=== PATIENT | female | born 1975 | race African-American/Black ===

== ENCOUNTER 2017-04-01 16:27 | Emergency (ER) | payer OTHER ==
[~2017-04-01] VITALS: Ht 160 cm; Wt 75.0 kg
[2017-04-01 16:29] VITALS: BP 136/80
== END 2017-04-01 19:44 | disposition left against medical advice (07) ==
LOC: EMS 16:29
DX: R60.0 Localized edema (principal); E11.9 Type 2 diabetes mellitus without complications; F17.210 Nicotine dependence, cigarettes, uncomplicated; Z53.21 Procedure and treatment not carried out due to patient leaving prior to being seen by health care provider

== ENCOUNTER 2017-05-09 10:34 | Emergency (ER) | payer OTHER ==
[~2017-05-09] VITALS: Ht 160 cm; Wt 72.7 kg
[2017-05-09 10:52] LABS: GLUCOSE,POINT OF CARE 84 MG/DL (70-110)
[2017-05-09 13:15] VITALS: BP 130/78
== END 2017-05-09 13:26 | disposition home or self-care (01) ==
LOC: EMS 10:35
DX: J06.9 Acute upper respiratory infection, unspecified (principal); E11.9 Type 2 diabetes mellitus without complications; F17.210 Nicotine dependence, cigarettes, uncomplicated; R03.0 Elevated blood-pressure reading, without diagnosis of hypertension
CPT/HCPCS: 82962; 99283

== ENCOUNTER 2018-11-16 21:04 | Emergency (ER) | payer OTHER ==
[~2018-11-16] VITALS: Ht 162.6 cm; Wt 77.3 kg
[2018-11-16 22:16] VITALS: BP 141/90
[2018-11-16] MEDS ORDERED: HYDROCODONE/ACETAMINOPHEN 5-325 MG TABLET PO ONE (22:30)
== END 2018-11-16 23:06 | disposition home or self-care (01) ==
LOC: EMS 21:06
DX: S62.521A Displaced fracture of distal phalanx of right thumb, initial encounter for closed fracture (principal); E11.9 Type 2 diabetes mellitus without complications; F17.210 Nicotine dependence, cigarettes, uncomplicated; W23.0XXA Caught, crushed, jammed, or pinched between moving objects, initial encounter; Y93.89 Activity, other specified; Y92.89 Other specified places as the place of occurrence of the external cause; Y99.8 Other external cause status

== ENCOUNTER 2020-09-06 22:29 | Emergency (ER) | payer OTHER ==
[~2020-09-06] VITALS: Ht 160 cm; Wt 79.5 kg
[~2020-09-06 22:29] MED LIST: ALBU8HFA IH
[2020-09-06] MEDS ORDERED: KETOROLAC TROMETHAMINE 60 MG/2 ML VIAL IM ONE (23:30)
[2020-09-07 00:57] VITALS: BP 132/78
== END 2020-09-07 00:57 | disposition home or self-care (01) ==
LOC: EMS 22:35
DX: S39.011A Strain of muscle, fascia and tendon of abdomen, initial encounter (principal); X58.XXXA Exposure to other specified factors, initial encounter; Y93.89 Activity, other specified; Y92.89 Other specified places as the place of occurrence of the external cause; Y99.8 Other external cause status
CPT/HCPCS: 81025; 96372; 99283; J1885

== ENCOUNTER 2023-12-07 21:03 | Emergency (ER) | payer OTHER ==
[~2023-12-07] VITALS: Ht 160 cm; Wt 77.3 kg
[~2023-12-07 21:03] MED LIST changes: +ALBU18HF12 IH; -ALBU8HFA IH
[2023-12-07 21:21] VITALS: BP 123/85; PULSE 117; RESP 17; TEMP 98.4
[2023-12-07 21:58] LABS: COVID AG,FIA SOURCE NASAL SWAB
[2023-12-07 22:55] LABS: INFLUENZA TYPE A NEGATIVE FOR TYPE A (NEGATIVE); INFLUENZA TYPE B NEGATIVE FOR TYPE B (NEGATIVE)
[2023-12-07 22:56] LABS: SARS-COV2 (COVID) ANTIGEN,FIA Negative (Negative)
[2023-12-07 23:00] LABS: RAPID GROUP A STREP NEGATIVE (NEGATIVE)
== END 2023-12-07 23:02 | disposition left against medical advice (07) ==
LOC: EMS 21:04
DX: R68.89 Other general symptoms and signs (principal); Z20.822 Contact with and (suspected) exposure to COVID-19
CPT/HCPCS: 87430; 87804; 99281; Z7502

== ENCOUNTER 2023-12-25 00:20 | Emergency (ER) | payer OTHER ==
[~2023-12-25] VITALS: Ht 160 cm; Wt 79.5 kg
[2023-12-25 01:07] VITALS: TEMP 98
[2023-12-25 03:00] VITALS: BP 164/76; PULSE 89; RESP 16
== END 2023-12-25 03:00 | disposition home or self-care (01) ==
LOC: EMS 00:20
DX: S29.011A Strain of muscle and tendon of front wall of thorax, initial encounter (principal); I10 Essential (primary) hypertension; F17.210 Nicotine dependence, cigarettes, uncomplicated; Z98.890 Other specified postprocedural states; X58.XXXA Exposure to other specified factors, initial encounter; Y93.89 Activity, other specified; Y92.89 Other specified places as the place of occurrence of the external cause; Y99.8 Other external cause status
CPT/HCPCS: 71045; 93005; 99283

== ENCOUNTER 2023-12-27 01:32 | Emergency (ER) | payer OTHER ==
[~2023-12-27] VITALS: Ht 160 cm; Wt 75.0 kg
[2023-12-27 01:36] VITALS: TEMP 97.9
[2023-12-27 02:34] LABS: HEMATOCRIT 41.7 % (36-46); HEMOGLOBIN 13.6 g/dL (12.0-16.0); LYMPHOCYTES # (AUTO) 2.7 K/uL (1.0-4.8); LYMPHOCYTES % (AUTO) 26.6 % (22.0-44.0); MEAN CORPUSCULAR HEMOGLOBIN 26.2 pg (26.0-34.0); MEAN CORPUSCULAR HGB CONC 32.7 G/dL (31.0-37.0); MEAN CORPUSCULAR VOLUME 80 fL (80-100); MONOCYTES # (AUTO) 0.8 K/uL (0.1-1.0); MONOCYTES % (AUTO) 7.8 % (2.0-9.0); NEUTROPHILS # (AUTO) 5.8 K/uL (1.8-7.7); NEUTROPHILS % (AUTO) 57.6 % (40.0-70.0); PLATELET COUNT (AUTO) 426 K/uL (150-450); RED BLOOD CELL COUNT(AUTO) 5.21 MIL/uL (4.00-5.20); RED CELL DISTRIBUTION WIDTH 16.8 % (11.5-14.5); WHITE BLOOD COUNT (AUTO) 10.1 K/uL (4.5-11.0)
[2023-12-27 02:43] LABS: ANION GAP 10 mmol/L (8-16); CALCIUM, TOTAL 9.5 mg/dL (8.8-10.5); CARBON DIOXIDE 28 mmol/L (22-29); CHLORIDE 101 mmol/L (98-107); GLOMERULAR FILTR. RATE CALC > 60 mL/min (>60); GLUCOSE,RANDOM 120 mg/dL (70-110); POTASSIUM 3.7 mmol/L (3.5-5.1); SODIUM SERUM 139 mmol/L (136-145); UREA NITROGEN, BLOOD 11 mg/dL (7-18)
[2023-12-27 02:50] LABS: TROPONIN I-HIGH SENSITIVITY 5 ng/L (<51)
[2023-12-27 02:55] LABS: B-TYPE NATRIURETIC PEPTIDE 5 pg/mL (0-100)
[2023-12-27 03:07] LABS: ALANINE AMINOTRANSFERASE 24 U/L (12-78); ALBUMIN 3.5 g/dL (3.4-5.0); ALKALINE PHOSPHATASE 104 U/L (46-116); ASPARTATE AMINOTRANSFERASE 21 U/L (15-37); BILIRUBIN,TOTAL 0.1 mg/dL (0.1-1.0); CREATINE KINASE, TOTAL ONLY 152 U/L (26-192); TOTAL PROTEIN, SERUM 8.7 g/dL (6.4-8.2)
[2023-12-27 03:21] VITALS: BP 155/87; PULSE 86; RESP 16
[2023-12-27] MEDS ORDERED: AMLO2.5T96 PO (04:11)
[2023-12-27] MEDS: AmLODIPine BESYLATE 5 MG TABLET PO ONE (04:25)
== END 2023-12-27 04:36 | disposition home or self-care (01) ==
LOC: EMS 01:38
DX: I10 Essential (primary) hypertension (principal); F17.210 Nicotine dependence, cigarettes, uncomplicated; Z98.890 Other specified postprocedural states
CPT/HCPCS: 71045; 80053; 82550; 83880; 84484; 85025; 93005; 99285; 36415-L1; 36415-TC

== ENCOUNTER 2024-01-15 04:36 | Emergency (ER) | payer OTHER ==
[~2024-01-15] VITALS: Ht 160 cm; Wt 77.3 kg
[~2024-01-15 04:36] MED LIST changes: +AMLO2.5T96 PO
[2024-01-15 05:50] LABS: BASOPHILS % (AUTO) 0.7 % (0.0-2.0); EOSINOPHILS % (AUTO) 1.6 % (1.0-6.0); HEMOGLOBIN 12.3 g/dL (12.0-16.0); LYMPHOCYTES # (AUTO) 1.6 K/uL (1.0-4.8); LYMPHOCYTES % (AUTO) 18.6 % (22.0-44.0); MEAN CORPUSCULAR HEMOGLOBIN 26.1 pg (26.0-34.0); MEAN CORPUSCULAR HGB CONC 32.5 G/dL (31.0-37.0); MEAN CORPUSCULAR VOLUME 80 fL (80-100); MONOCYTES # (AUTO) 0.7 K/uL (0.1-1.0); MONOCYTES % (AUTO) 8.4 % (2.0-9.0); NEUTROPHILS # (AUTO) 6.1 K/uL (1.8-7.7); NEUTROPHILS % (AUTO) 70.7 % (40.0-70.0); PLATELET COUNT (AUTO) 369 K/uL (150-450); RED BLOOD CELL COUNT(AUTO) 4.73 MIL/uL (4.00-5.20); RED CELL DISTRIBUTION WIDTH 16.8 % (11.5-14.5); WHITE BLOOD COUNT (AUTO) 8.7 K/uL (4.5-11.0)
[2024-01-15 05:59] LABS: ANION GAP 8 mmol/L (8-16); CALCIUM, TOTAL 9.4 mg/dL (8.8-10.5); CARBON DIOXIDE 25 mmol/L (22-29); CHLORIDE 105 mmol/L (98-107); CREATININE 0.81 mg/dL (0.60-1.30); GLOMERULAR FILTR. RATE CALC > 60 mL/min (>60); GLUCOSE,RANDOM 106 mg/dL (70-110); POTASSIUM 4.2 mmol/L (3.5-5.1); SODIUM SERUM 138 mmol/L (136-145); UREA NITROGEN, BLOOD 11 mg/dL (7-18)
[2024-01-15 06:08] LABS: TROPONIN I-HIGH SENSITIVITY 4 ng/L (<51)
[2024-01-15] MEDS: IBUPROFEN 600 MG TABLET PO ONE (08:02)
[2024-01-15 08:58] LABS: TROPONIN I-HIGH SENSITIVITY 6 ng/L (<51)
[2024-01-15 11:47] VITALS: BP 157/91; PULSE 94; RESP 16; TEMP 98.1
== END 2024-01-15 12:05 | disposition home or self-care (01) ==
LOC: EMS 04:37
DX: R07.9 Chest pain, unspecified (principal); I10 Essential (primary) hypertension; F17.210 Nicotine dependence, cigarettes, uncomplicated; Z98.890 Other specified postprocedural states
CPT/HCPCS: 71046; 80048; 84484; 85025; 93005; 99285; 36415-L1; 36415-TC

== ENCOUNTER 2024-02-10 19:17 | Emergency (ER) | payer OTHER ==
[~2024-02-10] VITALS: Ht 160 cm; Wt 75.0 kg
[2024-02-10 19:20] VITALS: TEMP 98.5
[2024-02-10] MEDS ORDERED: BACTDSB PO (20:37)
[2024-02-10] MEDS ORDERED: CEPH-558 PO (20:37)
[2024-02-10 20:45] VITALS: BP 139/77; PULSE 114; RESP 16
== END 2024-02-10 21:07 | disposition home or self-care (01) ==
LOC: EMS 19:18
DX: L03.311 Cellulitis of abdominal wall (principal); I10 Essential (primary) hypertension; F17.210 Nicotine dependence, cigarettes, uncomplicated
CPT/HCPCS: 99283; Z7502

== ENCOUNTER 2024-12-18 19:09 | Inpatient (IN) | payer OTHER ==
[~2024-12-18] VITALS: Ht 160 cm; Wt 93.2 kg
[~2024-12-18 19:09] MED LIST changes: +BACTDSB PO; +CEPH-558 PO
[2024-12-18 23:14] LABS: BASOPHILS % (AUTO) 0.8 % (0.0-2.0); EOSINOPHILS % (AUTO) 1.4 % (1.0-6.0); HEMATOCRIT 39.6 % (36-46); HEMOGLOBIN 12.9 g/dL (12.0-16.0); LYMPHOCYTES # (AUTO) 2.3 K/uL (1.0-4.8); LYMPHOCYTES % (AUTO) 18.9 % (22.0-44.0); MEAN CORPUSCULAR HEMOGLOBIN 25.7 pg (26.0-34.0); MEAN CORPUSCULAR HGB CONC 32.5 G/dL (31.0-37.0); MEAN CORPUSCULAR VOLUME 79 fL (80-100); MONOCYTES # (AUTO) 0.8 K/uL (0.1-1.0); MONOCYTES % (AUTO) 6.9 % (2.0-9.0); NEUTROPHILS # (AUTO) 8.5 K/uL (1.8-7.7); PLATELET COUNT (AUTO) 334 K/uL (150-450); RED BLOOD CELL COUNT(AUTO) 5.02 MIL/uL (4.00-5.20); RED CELL DISTRIBUTION WIDTH 16.6 % (11.5-14.5); WHITE BLOOD COUNT (AUTO) 11.9 K/uL (4.5-11.0)
[2024-12-18 23:22] LABS: ANION GAP 7 mmol/L (8-16); CALCIUM, TOTAL 9.4 mg/dL (8.8-10.5); CARBON DIOXIDE 27 mmol/L (22-29); CHLORIDE 104 mmol/L (98-107); CREATININE 0.83 mg/dL (0.60-1.30); GLOMERULAR FILTR. RATE CALC > 60 mL/min (>60); GLUCOSE,RANDOM 157 mg/dL (70-110); SODIUM SERUM 138 mmol/L (136-145); UREA NITROGEN, BLOOD 13 mg/dL (7-18)
[2024-12-18 23:24] LABS: ALANINE AMINOTRANSFERASE 41 U/L (12-78); ALBUMIN 3.2 g/dL (3.4-5.0); ALKALINE PHOSPHATASE 94 U/L (46-116); ASPARTATE AMINOTRANSFERASE 43 U/L (15-37); BILIRUBIN,TOTAL 0.2 mg/dL (0.1-1.0); TOTAL PROTEIN, SERUM 7.8 g/dL (6.4-8.2)
[2024-12-18 23:26] LABS: B-TYPE NATRIURETIC PEPTIDE < 5 pg/mL (0-100); BILIRUBIN,DIRECT < 0.05 mg/dL (0.00-0.20); TROPONIN I-HIGH SENSITIVITY 4 ng/L (<51)
[2024-12-18] MEDS ORDERED: IOHEXOL 350 MG/ML 150 ML VIAL ONE (23:49)
[2024-12-18] MEDS ORDERED: SODIUM CHLORIDE 0.9% 100 ML ONE (23:49)
[2024-12-19] MEDS: MORPHINE SULFATE 2 MG/ML SYRINGE IVP ONE (01:14)
[2024-12-19] MEDS ORDERED: ONDANSETRON HCL 4 MG/2 ML VIAL IVP PRN (02:30)
[2024-12-19] MEDS ORDERED: ALBUTEROL SULFATE 2.5 MG/0.5 ML NEB SOLUTION NEB PRN (02:30)
[2024-12-19] MEDS ORDERED: IPRATROPIUM BROMIDE 0.5 MG/2.5 ML NEB SOLUTION NEB PRN (02:30)
[2024-12-19] MEDS: VANCOMYCIN HCL 1.25 GM in DEXTROSE 5%-WATER 250 ML IV ONE (02:41)
[2024-12-19] MEDS: SODIUM CHLORIDE 0.9% 1,000 ML IV ONE (03:21)
[2024-12-19] MEDS ORDERED: SUGAMMADEX SODIUM 200 MG/2 ML VIAL IVP ONE (06:43)
[2024-12-19] MEDS ORDERED: METOCLOPRAMIDE HCL 5 MG/ML 2 ML VIAL ONE (06:43)
[2024-12-19] MEDS ORDERED: DEXAMETHASONE SOD PHOS 4 MG/ML VIAL ONE (06:43)
[2024-12-19] MEDS ORDERED: PROPOFOL 1% 20 ML VIAL IVP ONE (06:43)
[2024-12-19] MEDS ORDERED: FentaNYL CITRATE PF 100 MCG/2 ML VIAL ONE (06:43)
[2024-12-19] MEDS ORDERED: ONDANSETRON HCL 4 MG/2 ML VIAL ONE (06:43)
[2024-12-19] MEDS ORDERED: MIDAZOLAM HCL 2 MG/2 ML VIAL ONE (06:43)
[2024-12-19] MEDS ORDERED: LIDOCAINE/PF 2% 5 ML SYRINGE IVP ONE (06:43)
[2024-12-19] MEDS ORDERED: ROCURONIUM BROMIDE 10 MG/ML 5 ML VIAL ONE (06:43)
[2024-12-19] MEDS: RINGERS SOLUTION,LACTATED 1,000 ML IV SCH (06:45)
[2024-12-19 06:50] VITALS: BP 154/82; PULSE 102; RESP 18; TEMP 98.4; O2SAT 98
[2024-12-19] MEDS: HEPARIN SODIUM,PORCINE 5,000 UNITS/ML VIAL SQ SCH (08:45)
[2024-12-19] MEDS: DOCUSATE SODIUM 100 MG CAPSULE PO SCH (08:54)
[2024-12-19] MEDS ORDERED: RINGERS SOLUTION,LACTATED 1,000 ML IV ONE (13:27)
[2024-12-19] MEDS ORDERED: MEPERIDINE-PF 25 MG/ML VIAL IVP PRN ×2 (13:30)
[2024-12-19] MEDS ORDERED: FentaNYL CITRATE PF 100 MCG/2 ML VIAL IVP PRN ×2 (13:30)
[2024-12-19] MEDS ORDERED: HYDROmorphone HCL 2 MG/ML SYRINGE IVP PRN ×3 (13:30→16:00)
[2024-12-19] MEDS: CHLORHEXIDINE GLUCONATE 2% TOWELETTE [2'S/6'S] TP ONE (14:08)
[2024-12-19] MEDS: ETHYL ALCOHOL 62% ANTISEPTIC NASAL SANITIZER 0.6 ML AMPUL NASAL ONE (14:08)
[2024-12-19] MEDS ORDERED: BUPIVACAINE 0.25%/EPI 1:200,000/PF 30 ML VIAL ONE (14:36)
[2024-12-19] MEDS: VANCOMYCIN HCL 750 MG in DEXTROSE 5%-WATER 250 ML IV SCH (15:20)
[2024-12-19] MEDS ORDERED: HYDROCODONE/ACETAMINOPHEN 5-325 MG TABLET PO PRN (16:00)
[2024-12-19] MEDS ORDERED: MORPHINE SULFATE 4 MG/ML SYRINGE IVP PRN (16:00)
[2024-12-19 17:23] VITALS: BP 142/88; PULSE 91; RESP 18; TEMP 97.9; O2SAT 100
[2024-12-19 19:40] VITALS: BP 116/63; PULSE 106; RESP 18; TEMP 98.4; O2SAT 94
[2024-12-19] MEDS ORDERED: OXYGEN THERAPY IH SCH (20:00)
[2024-12-19 20:23] VITALS: PULSE 98
[2024-12-19] MEDS ORDERED: SODIUM CHLORIDE 0.9% 250 ML IV ONE (23:40)
[2024-12-20 04:34] VITALS: BP 138/78; PULSE 103; RESP 20; TEMP 99.3; O2SAT 96
[2024-12-20 07:23] VITALS: BP 123/68; PULSE 87; RESP 18; TEMP 98.1; O2SAT 96
[2024-12-20] MEDS: OXYGEN THERAPY IH SCH (08:00)
[2024-12-20 08:12] LABS: BASOPHILS % (AUTO) 0.7 % (0.0-2.0); EOSINOPHILS % (AUTO) 3.7 % (1.0-6.0); HEMATOCRIT 36.2 % (36-46); HEMOGLOBIN 11.8 g/dL (12.0-16.0); LYMPHOCYTES # (AUTO) 1.8 K/uL (1.0-4.8); LYMPHOCYTES % (AUTO) 24.1 % (22.0-44.0); MEAN CORPUSCULAR HEMOGLOBIN 25.6 pg (26.0-34.0); MEAN CORPUSCULAR HGB CONC 32.7 G/dL (31.0-37.0); MEAN CORPUSCULAR VOLUME 78 fL (80-100); MONOCYTES # (AUTO) 0.9 K/uL (0.1-1.0); MONOCYTES % (AUTO) 11.2 % (2.0-9.0); NEUTROPHILS # (AUTO) 4.6 K/uL (1.8-7.7); NEUTROPHILS % (AUTO) 60.3 % (40.0-70.0); PLATELET COUNT (AUTO) 331 K/uL (150-450); RED BLOOD CELL COUNT(AUTO) 4.63 MIL/uL (4.00-5.20); RED CELL DISTRIBUTION WIDTH 16.5 % (11.5-14.5); WHITE BLOOD COUNT (AUTO) 7.6 K/uL (4.5-11.0)
[2024-12-20 08:26] LABS: ANION GAP 4 mmol/L (8-16); CARBON DIOXIDE 28 mmol/L (22-29); CHLORIDE 106 mmol/L (98-107); CREATININE 0.83 mg/dL (0.60-1.30); GLOMERULAR FILTR. RATE CALC > 60 mL/min (>60); GLUCOSE,RANDOM 119 mg/dL (70-110); POTASSIUM 4.1 mmol/L (3.5-5.1); SODIUM SERUM 138 mmol/L (136-145); UREA NITROGEN, BLOOD 14 mg/dL (7-18)
[2024-12-20] MEDS ORDERED: SULF1TAB42 PO (09:23)
[2024-12-20] MEDS ORDERED: VANCOMYCIN HCL 1.25 GM in DEXTROSE 5%-WATER 250 ML IV SCH (16:00)
== END 2024-12-20 12:10 | disposition home or self-care (01) | DRG 383 ==
LOC: EMS 19:09 → EDH 12-19 02:20 → 6S 12-19 05:54
PROVIDERS: ADMIT Internal Medicine; ATTEND Internal Medicine
PROC: 0JB50ZZ Excision of Left Neck Subcutaneous Tissue and Fascia, Open Approach (ICD-10-PCS; principal; 2024-12-19 15:25)
DX: L03.221 Cellulitis of neck (principal); R65.10 Systemic inflammatory response syndrome (SIRS) of non-infectious origin without acute organ dysfunction; L03.811 Cellulitis of head [any part, except face]; L72.3 Sebaceous cyst; L02.11 Cutaneous abscess of neck; E66.9 Obesity, unspecified; R73.9 Hyperglycemia, unspecified; I10 Essential (primary) hypertension; Z87.81 Personal history of (healed) traumatic fracture; Z98.891 History of uterine scar from previous surgery; Z87.891 Personal history of nicotine dependence; Z68.36 Body mass index [BMI] 36.0-36.9, adult
CPT/HCPCS: 70460; 70491; 80048; 80076; 80202; 83735; 83880; 84484; 84703; 85025; 87070; 87186; 87205; 88304; 93005; 99285; J1100; J1644; J2250; J2270; J2405; J2704; J2765; J3010; J3370; J3490; J7050; J7060; J7120